=== PATIENT | female | born 1935 | race Caucasian/White ===

== ENCOUNTER 2018-02-14 07:44 | Outpatient (CLI) | payer OTHER ==
[~2018-02-14 07:44] MED LIST: DIOVAN40 MG; GLIMEPIRIDE1 MG
== END 2018-02-14 07:53 | disposition home or self-care (01) ==
LOC: NUCLEAR 07:44
DX: I11.9 Hypertensive heart disease without heart failure (principal); E11.9 Type 2 diabetes mellitus without complications; I24.8 Other forms of acute ischemic heart disease
CPT/HCPCS: 78452; 93017; A9500; J0153

== ENCOUNTER 2019-10-14 09:38 | Outpatient (CLI) | payer OTHER | END 2019-10-14 10:30 | disposition home or self-care (01) | LOC: NUCLEAR 09:38 | DX: I73.9 Peripheral vascular disease, unspecified (principal) ==

== ENCOUNTER 2020-07-22 21:26 | Inpatient (IN) | payer OTHER ==
[~2020-07-22] VITALS: Ht 154.9 cm; Wt 68.5 kg
--- NOTE | 2020-07-22 21:34 | NUR ---
SE RECIBE PTE ALERTA Y ORIENTADA X3,ES REFERIDA POR EL PARA REPETIR LABORATORIOS ,REFIERE QUE LA PTE TIENE EL SODIO BAJO.
[2020-07-22] MEDS ORDERED: COZAAR100 MG (21:40)
[2020-07-22] MEDS ORDERED: LIPITOR20 MG (21:40)
[2020-07-22] MEDS ORDERED: PROTONIX20 MG (21:41)
[2020-07-22] MEDS ORDERED: ASPIR 8181 MG (21:42)
--- NOTE | 2020-07-22 21:57 | NUR ---
SE ORIENTA PTE Y FAMILIAR SOBRE TX MEDICO POR MR BUENROSTRO Y REFIEREN ENTENDER,SE LE EXTRAEN MUESTRAS BAJO MEDIDAS ASEPTICAS,SE CANALIZA Y SE COLOCAN FLUIDOS DE MANTENIMIENTO BAJANDO SIN DIFICULTAD,SE UBICA EN CHARLY CON BARANDAS ELEVADAS.
--- NOTE | 2020-07-22 23:24 | NUR ---
PT ALERTA Y ORIENTADA X3 ESFERAS SE RECIBE EN CHARLY CON BARANDAS ELEVADAS Y FRENOS COLOCADOS. HEPARIN LOCK E IVFLUIDS PATENTES. PENDIENTE VISITA DE INTERNISTA.
--- NOTE | 2020-07-23 07:08 | NUR ---
PACIENTE FEMINA ALERTA ORIENTADA DEVIDAMENTE IDENTIFICADA EN COMPANIA DE FAMILIAR. AREAS DE VENOPUNCION KARAN DE EDEMA Y ERITEMAS. EN ESPERA DEL MEDICO INTERNISTA PORFIRIO BROOKS PARA SER EVALUADA. SE LE EDWIN PRIVACIDAD Y SEGURIDAD EN TODO MOMENTO.
--- NOTE | 2020-07-23 07:52 | NUR ---
PACIENTE ALERTA Y ORIENTADA X3. SE ORIENTA SOBRE PROCEDIMIENTO A REALIZAR Y REFIERE ENTENDER. SE REALIZA MUESTRA DE ROBERTH BAJO MEDIDAS ASEPTICAS. PENDIENTE MUESTRA DE ORINA.
== END 2020-07-25 18:19 | disposition home or self-care (01) | DRG 641 ==
LOC: ER 21:26 → SEC-K 07-23 11:51 → SURG 07-23 16:17
PROVIDERS: ADMIT Internal Medicine; ATTEND Internal Medicine
DX: E86.0 Dehydration (principal); N17.9 Acute kidney failure, unspecified; E87.1 Hypo-osmolality and hyponatremia; T50.2X5A Adverse effect of carbonic-anhydrase inhibitors, benzothiadiazides and other diuretics, initial encounter; E11.9 Type 2 diabetes mellitus without complications; I10 Essential (primary) hypertension; Z86.73 Personal history of transient ischemic attack (TIA), and cerebral infarction without residual deficits; Z79.84 Long term (current) use of oral hypoglycemic drugs; Z20.828 Contact with and (suspected) exposure to other viral communicable diseases

== ENCOUNTER 2022-01-19 09:23 | Outpatient (CLI) | payer OTHER ==
[~2022-01-19 09:23] MED LIST changes: +ASPIR 8181 MG; +COZAAR100 MG; +LIPITOR20 MG; +PROTONIX20 MG
== END 2022-01-19 09:31 | disposition home or self-care (01) ==
LOC: TOM 09:23
PROVIDERS: ATTEND Psychiatry & Neurology Clinical Neurophysiology
DX: I62.03 Nontraumatic chronic subdural hemorrhage (principal)

== ENCOUNTER 2022-02-23 07:18 | Outpatient (CLI) | payer OTHER | END 2022-02-23 07:23 | disposition home or self-care (01) | LOC: NUCLEAR 07:18 | PROVIDERS: ATTEND Internal Medicine Cardiovascular Disease | DX: I20.9 Angina pectoris, unspecified (principal) ==

== ENCOUNTER 2022-12-24 07:25 | Outpatient (CLI) | payer OTHER | END 2022-12-24 07:26 | disposition home or self-care (01) | LOC: NUCLEAR 07:25 | PROVIDERS: ATTEND Internal Medicine Cardiovascular Disease | DX: I73.9 Peripheral vascular disease, unspecified (principal) ==

== ENCOUNTER 2023-12-13 12:06 | Outpatient (CLI) | payer OTHER | END 2023-12-13 12:12 | disposition home or self-care (01) | LOC: SONOGRAMA 12:06 | PROVIDERS: ATTEND Internal Medicine | DX: N18.9 Chronic kidney disease, unspecified (principal) ==

== ENCOUNTER 2024-01-15 16:00 | Inpatient (IN) | payer OTHER ==
[~2024-01-15] VITALS: Ht 152.4 cm; Wt 65.8 kg
--- NOTE | 2024-01-15 16:29 | NUR ---
PACIENTE ALERTA Y ORIENTDA X3, REFEIRE TENER DOLOR DE PECHO Y DIFICULTAD RESPIRATORIA. INDICA QUE EL SOMMER LE DIJO QUE VINIERA A EVI DE EMEREHENCIAS. SE MONITOREAN VS, SE REALIZA EKG Y SE UBICA
[2024-01-15] MEDS ORDERED: METHYLPREDNISOLONE SOD SUCC 125 MG VIAL IV ONE (16:45)
[2024-01-15] MEDS ORDERED: LEVALBUTEROL HCL 1.25 MG/3 ML SOLUTION IH SCH (16:45)
--- NOTE | 2024-01-15 17:15 | NUR ---
SE ORIENTA PTE SOBRE TX A SEGUIR, LA MISMA REFIERE ENTENDER. SE JOSE MUESTRAS DE LAB, SE CANALIZA Y SE ADMINISTRAN MEDS KARL ORDEN MEDICA
[2024-01-15 17:19] LABS: HEMATOCRIT 29.7 % (36.0-45.00); HEMOGLOBIN 9.9 g/dL (12.0-15.00); MEAN CELL VOLUME 85.6 fL (80.00-100.00); MEAN CORPUSCULAR HEMOGLOBIN 28.4 pg (27.00-32.0); MEAN CORPUSCULAR HGB CONC 33.2 g/dl (32.0-36.0); PLATELET COUNT 386 K/uL (150-450); RED BLOOD COUNT 3.47 M/uL (4.00-6.00); RED CELL DISTRIBUTION WIDTH 14.4 % (11.5-14.5)
[2024-01-15 17:58] LABS: ABG PH 7.473 (7.35-7.45); ABG PO2 73.1 mmHg (80-100); BASE EXCESS -2.6 mmol/l; BICARBONATE 19.4 mmol/l (23-25); SaO2 95.5 %; Tco2 20.2 mmol/l
[2024-01-15 17:59] LABS: allen test SATISFACTORY; o2 21 %; puncture site RADIAL LEFT
[2024-01-15 18:18] LABS: ALBUMIN 3.6 gm/dL (3.4-5.0); BILIRUBIN TOTAL 0.63 mg/dL (0.3-1.2); CALCIUM 9.2 mg/dL (8.5-10.1); CREATININE SERUM 1.56 mg/dL (0.55-1.02); GFR 31.39; GLOBULINA 3.4 G/DL (2.4-3.5); POTASSIUM 5.06 mEq/L (3.5-5.1)
[2024-01-15] MEDS ORDERED: ASPIRIN 325 MG TABLET PO ONE (20:45)
[2024-01-15] MEDS ORDERED: NITROGLYCERIN IN 5 % DEXTROSE 250 ML IV SCH (20:45)
[2024-01-15] MEDS ORDERED: SODIUM CHLORIDE 0.45 % 1,000 ML IV SCH (20:45)
--- NOTE | 2024-01-15 21:01 | NUR ---
SE PASA PACIENTE A ICU # 3 SE COLOCA EN MONITOR CARDIACO Y OXIMETRIA DE PULSO. SE COLOCA CANULA NASAL A 3 L/MIN Y SE ADMINITRAN MEDICAMENTOS KARL ORDEN MEDICA
[2024-01-15] MEDS ORDERED: ENOXAPARIN SODIUM 60 MG/0.6 ML SYRINGE SUBCUTANEO SCH (21:25)
[2024-01-15] MEDS ORDERED: FUROsemide 20 MG/2 ML VIAL IV SCH (21:26)
[2024-01-15] MEDS ORDERED: IPRATROPIUM BROMIDE 0.5 MG/2.5 ML AMPUL.NEB IH SCH (21:29)
[2024-01-15] MEDS ORDERED: ONDANSETRON HCL 4 MG in 0.9 % SODIUM CHLORIDE 50 ML IV PRN (21:30)
[2024-01-15] MEDS ORDERED: ACETAMINOPHEN 500 MG GEL..CAP PO PRN (21:30)
[2024-01-15] MEDS ORDERED: DEXTROSE 50 % IN WATER 0.5 G/ML DISP.SYRIN IV PRN (21:45)
[2024-01-15] MEDS ORDERED: INSULIN LISPRO 1,000 UNIT/10 ML UNITS SUBCUTANEO PRN (21:45)
[2024-01-15 22:13] LABS: D DIMER 1.68 MG/L; PARTIAL THROMBOPLASTIN TIME 30.6 SECONDS (22.0-34.0); PH,URINE 5.5 (5.0-8.0); URINE APPEARANCE Clear; URINE BILIRRUBIN Negative (NEGATIVE); URINE BLOOD Negative; URINE COLOR Yellow; URINE LEUKOCYTE Negative; URINE NITRATE Negative; URINE PROTEIN 30 (NEGATIVE); URINE UROBILINOGEN 0.2 E.U./dl
[2024-01-15 22:16] LABS: INR 1.12; PROTHROMBIN TIME 11.7 SECONDS (9.0-11.5); URINE BACTERIA 36.5 uL (0.0-1933); URINE EPITHELIAL CELLS 1.6 uL (0.0-38.8); URINE RBC 10.4 uL (0.0-20.8)
[2024-01-15 22:17] LABS: URINE GLUCOSE 100 MG/DL (NEGATIVE)
[2024-01-15 22:20] LABS: ALT/SGPT 27 U/L (12-78); AST/SGOT 20 U/L (15-37); LDH 203 U/L (84-246); PHOSPHOKINASE CREATININE 38 U/L (26-192)
[2024-01-16] MEDS ORDERED: FAMOTIDINE/PF 20 MG in 0.9 % SODIUM CHLORIDE 8 ML IV PUSH SCH (09:00)
[2024-01-16] MEDS ORDERED: ATORVASTATIN CALCIUM 40 MG TABLET PO SCH (09:00)
[2024-01-16] MEDS ORDERED: ISOSORBIDE MONONITRATE 30 MG TABLET PO SCH (09:00)
[2024-01-16] MEDS ORDERED: SERTRALINE HCL 50 MG TABLET PO SCH (09:00)
[2024-01-16 10:53] LABS: ALBUMIN 3.3 gm/dL (3.4-5.0); BILIRUBIN TOTAL 0.57 mg/dL (0.3-1.2); CALCIUM 9.1 mg/dL (8.5-10.1); CREATININE SERUM 1.75 mg/dL (0.55-1.02); GFR 27.49; GLOBULINA 3.4 G/DL (2.4-3.5); POTASSIUM 4.54 mEq/L (3.5-5.1); TOTAL PROTEIN 6.7 gm/dL (6.4-8.2)
[2024-01-17 05:05] LABS: ALBUMIN 3.1 gm/dL (3.4-5.0); BILIRUBIN TOTAL 0.52 mg/dL (0.3-1.2); CREATININE SERUM 1.72 mg/dL (0.55-1.02); GFR 28.05; GLOBULINA 3.5 G/DL (2.4-3.5); POTASSIUM 4.36 mEq/L (3.5-5.1); TOTAL PROTEIN 6.6 gm/dL (6.4-8.2)
[2024-01-17] MEDS ORDERED: APIXABAN 5 MG TABLET PO SCH (17:00)
[2024-01-17] MEDS ORDERED: ENOXAPARIN SODIUM 60 MG/0.6 ML SYRINGE SUBCUTANEO SCH (21:00)
[2024-01-18 08:02] LABS: BILIRUBIN TOTAL 0.52 mg/dL (0.3-1.2); CALCIUM 9.2 mg/dL (8.5-10.1); CREATININE SERUM 1.71 mg/dL (0.55-1.02); GFR 28.24; GLOBULINA 2.7 G/DL (2.4-3.5); POTASSIUM 4.78 mEq/L (3.5-5.1); TOTAL PROTEIN 5.7 gm/dL (6.4-8.2)
[2024-01-18] MEDS ORDERED: BUDESONIDE 0.5 MG/2 ML AMPUL.NEB IH SCH (17:00)
[2024-01-18] MEDS ORDERED: LEVALBUTEROL HCL 0.63 MG/3 ML SOLUTION IH SCH (18:00)
[2024-01-20 05:44] LABS: HEMATOCRIT 24.7 % (36.0-45.00); HEMOGLOBIN 8.5 g/dL (12.0-15.00); MEAN CELL VOLUME 85.7 fL (80.00-100.00); MEAN CORPUSCULAR HEMOGLOBIN 29.5 pg (27.00-32.0); MEAN CORPUSCULAR HGB CONC 34.5 g/dl (32.0-36.0); PLATELET COUNT 315 K/uL (150-450); RED BLOOD COUNT 2.88 M/uL (4.00-6.00); RED CELL DISTRIBUTION WIDTH 13.9 % (11.5-14.5)
[2024-01-20 07:31] LABS: BILIRUBIN TOTAL 0.55 mg/dL (0.3-1.2); CALCIUM 8.7 mg/dL (8.5-10.1); CREATININE SERUM 1.51 mg/dL (0.55-1.02); GFR 32.6; GLOBULINA 2.9 G/DL (2.4-3.5); POTASSIUM 4.25 mEq/L (3.5-5.1); TOTAL PROTEIN 5.9 gm/dL (6.4-8.2)
[2024-01-21 05:15] LABS: HEMATOCRIT 28.8 % (36.0-45.00); HEMOGLOBIN 9.7 g/dL (12.0-15.00); MEAN CELL VOLUME 85.9 fL (80.00-100.00); MEAN CORPUSCULAR HGB CONC 33.7 g/dl (32.0-36.0); PLATELET COUNT 357 K/uL (150-450); RED BLOOD COUNT 3.36 M/uL (4.00-6.00); RED CELL DISTRIBUTION WIDTH 13.6 % (11.5-14.5)
== END 2024-01-21 15:54 | disposition home or self-care (01) | DRG 280 ==
LOC: ER 16:01 → ICU-2 22:05 → MEDI 01-17 12:20
PROVIDERS: General Practice; Internal Medicine; Internal Medicine Nephrology; ADMIT Internal Medicine; ATTEND Internal Medicine
PROC: BW24YZZ Computerized Tomography (CT Scan) of Chest and Abdomen using Other Contrast (ICD-10-PCS; principal; 2024-01-15)
PROC: B54DZZZ Ultrasonography of Bilateral Lower Extremity Veins (ICD-10-PCS; 2024-01-15)
PROC: B24BZZZ Ultrasonography of Heart with Aorta (ICD-10-PCS; 2024-01-15)
PROC: CB121ZZ Planar Nuclear Medicine Imaging of Lungs and Bronchi using Technetium 99m (Tc-99m) (ICD-10-PCS; 2024-01-15)
PROC: 4A12X4Z Monitoring of Cardiac Electrical Activity, External Approach (ICD-10-PCS; 2024-01-17)
DX: I21.4 Non-ST elevation (NSTEMI) myocardial infarction (principal); I26.99 Other pulmonary embolism without acute cor pulmonale; E85.4 Organ-limited amyloidosis; I43 Cardiomyopathy in diseases classified elsewhere; I13.0 Hypertensive heart and chronic kidney disease with heart failure and stage 1 through stage 4 chronic kidney disease, or unspecified chronic kidney disease; N17.9 Acute kidney failure, unspecified; I50.30 Unspecified diastolic (congestive) heart failure; E11.22 Type 2 diabetes mellitus with diabetic chronic kidney disease; N18.9 Chronic kidney disease, unspecified; Z79.4 Long term (current) use of insulin; J44.9 Chronic obstructive pulmonary disease, unspecified; Z20.822 Contact with and (suspected) exposure to COVID-19; I34.0 Nonrheumatic mitral (valve) insufficiency